=== PATIENT | female | born 1975 | race African-American/Black ===

== ENCOUNTER 2022-01-26 11:19 | Emergency (ER) | payer OTHER ==
--- NOTE | 2022-01-26 11:46 | EDPHYS ---
Physician Documentation [facility] Name: Martina Ayala Age: 46 yrs Sex: Female : 1975 Arrival Date: 01/26/2022 Time: 11:23 Bed Waiting Private MD: ED Physician John Ross HPI: 01/26 11:50 This 46 yrs old Black Female presents to ER via Ambulatory with complaints of Knee Pain.ms3 11:50 46-year-old female with past medical history of diabetes and osteoarthritis of her ms3 right knee presents for right knee swelling and pain. Patient states she is having moderate pain in the right knee. Patient states the swelling has not gone down and she would like the fluid removed. Patient denies fevers or chills. Patient denies alleviating or inciting factors.. 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 - Social history:: Smoking status: Patient denies any tobacco usage or history of. ROS: 11:50 Constitutional: Negative for fever, and chills. Neck: Negative for injury, pain, and ms3 swelling, Cardiovascular: Negative for chest pain, and palpitations. Respiratory: Negative for shortness of breath, cough, wheezing, and pleuritic chest pain, Abdomen/GI: Negative for abdominal pain, nausea, vomiting, diarrhea, and constipation. 11:50 MS/extremity: Positive for pain, swelling, of the right knee. Exam: 11:50 Constitutional: This is a well developed, well nourished patient who is awake, alert, ms3 and in no acute distress. Neck: Trachea midline, no cervical lymphadenopathy. Supple, full range of motion without nuchal rigidity, or vertebral point tenderness. No Meningismus. Chest/axilla: Normal chest wall appearance and motion. Nontender with no deformity. Cardiovascular: Regular rate and rhythm with a normal S1 and S2. No gallops, murmurs, or rubs. Normal PMI, no JVD. No pulse deficits. Respiratory: Lungs have equal breath sounds bilaterally, clear to auscultation and percussion. No rales, rhonchi or wheezes noted. No increased work of breathing, no retractions or nasal flaring. Abdomen/GI: Soft, non-tender, with normal bowel sounds. No distension or tympany. No guarding or rebound. No evidence of tenderness throughout. Skin: Warm, dry with normal turgor. Normal color with no rashes, no lesions, and no evidence of cellulitis. Psych: Awake, alert, with orientation to person, place and time. Behavior, mood, and affect are within normal limits. 11:50 Musculoskeletal/extremity: Extremities: noted in the right knee: tenderness, pain, swelling, ROM: no acute changes, Circulation is intact in all extremities. Sensation intact. Vital Signs: 11:44 BP 128 / 80; Pulse 82; Resp 16; Temp 98.3(TE); Pulse Ox 100% on R/A; Weight 102.06 kg bm7 (R); Height 5 ft. 3 in. (160.02 cm); Pain 710; 11:44 Body Mass Index 39.86 (102.06 kg, 160.02 cm) bm7 MDM: 11:45 Patient medically screened. ms3 Administered Medications: No medications were administered Disposition Summary: 01/26/22 11:45 Discharge Ordered Location: Home ms3 Condition: Stable ms3 Diagnosis - Pain in right knee ms3 - Effusion, right knee ms3 - Osteoarthritis of knee, unspecified ms3 Followup: ms3 - With: Davion Vegas MD - When: 2 - 3 days - Reason: Recheck today's complaints, Re-evaluation by your physician Discharge Instructions: - Discharge Summary Sheet ms3 - Joint Pain ms3 - Knee Effusion ms3 - Acute Knee Pain, Adult ms3 Forms: - Medication Reconciliation Form ms3 - Work release form ms3 - Thank You Letter ms3 - Antibiotic Education ms3 - Prescription Opioid Use ms3 Signatures: John Ross DO DO ms3 Danielle Sanford, RN RN bm7
--- NOTE | 2022-01-26 11:46 | ER ---
Nurse's Notes [facility] Name: Martina Ayala Age: 46 yrs Sex: Female : 1975 Arrival Date: 01/26/2022 Time: 11:23 Bed Waiting Private MD: Diagnosis: Pain in right knee;Effusion, right knee;Osteoarthritis of knee, unspecified Presentation: 01/26 11:44 Chief complaint: Patient states: I have arthritis in my right knee and it is hurting bm7 and swelling. Coronavirus screen: At this time, the client does not indicate any symptoms associated with coronavirus-19. Ebola Screen: No symptoms or risks identified at this time. Initial Sepsis Screen: Does the patient meet any 2 criteria? No. Patient's initial sepsis screen is negative. Does the patient have a suspected source of infection? No. Patient's initial sepsis screen is negative. Risk Assessment: Do you want to hurt yourself or someone else? Patient reports no desire to harm self or others. Onset of symptoms is unknown. 11:44 Method Of Arrival: Ambulatory 7 11:44 Acuity: FIDENCIO 4 bm7 Triage Assessment: 11:45 General: Appears in no apparent distress. uncomfortable, Behavior is calm, cooperative, bm7 appropriate for age. Pain: Complains of pain in right knee. EENT: No deficits noted. No signs and/or symptoms were reported regarding the EENT system. Neuro: No deficits noted. Cardiovascular: No deficits noted. Respiratory: No deficits noted. GI: No deficits noted. No signs and/or symptoms were reported involving the gastrointestinal system. : No deficits noted. No signs and/or symptoms were reported regarding the genitourinary system. Derm: No deficits noted. No signs and/or symptoms reported regarding the dermatologic system. Musculoskeletal: Reports pain in right knee. 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 - Social history:: Smoking status: Patient denies any tobacco usage or history of. Screenin:46 Abuse screen: Denies threats or abuse. Nutritional screening: No deficits noted. bm7 Tuberculosis screening: No symptoms or risk factors identified. Fall Risk None identified. Assessment: 11:46 Reassessment: No changes from previously documented assessment. bm7 Vital Signs: 11:44 BP 128 / 80; Pulse 82; Resp 16; Temp 98.3(TE); Pulse Ox 100% on R/A; Weight 102.06 kg bm7 (R); Height 5 ft. 3 in. (160.02 cm); Pain 7/10; 11:44 Body Mass Index 39.86 (102.06 kg, 160.02 cm) bm7 ED Course: 11:23 Patient arrived in ED. mr 11:29 John Ross DO is Attending Physician. ms3 11:45 Triage completed. bm7 11:45 Davion Vegas MD is Referral Physician. ms3 11:45 Arm band placed on right wrist. bm7 11:46 Patient has correct armband on for positive identification. bm7 11:46 No provider procedures requiring assistance completed. Patient did not have IV access bm7 during this emergency room visit. Administered Medications: No medications were administered Medication: 11:46 VIS not applicable for this client. bm7 Outcome: 11:45 Discharge ordered by . ms3 11:50 Patient left the ED. bm7 Signatures: Afsaneh Contreras mr John Ross DO DO ms3 Danielle Sanford, RN RN bm7
[2022-01-26 12:11] VITALS: BP 128/80; TEMP 98.3; O2SAT 100
== END 2022-01-26 11:50 | disposition home or self-care (01) ==
LOC: ER 11:19
DX: M25.461 Effusion, right knee (principal); M17.11 Unilateral primary osteoarthritis, right knee; E11.9 Type 2 diabetes mellitus without complications
CPT/HCPCS: 99281